=== PATIENT | female | born 1980 | race Asian ===

== ENCOUNTER 2018-07-14 22:32 | Emergency (ER) | payer BC, OTHER ==
[2018-07-15 00:08] LABS: ADD UMIC YES; UR ASCORBIC ACID 20 mg/dL (NEGATIVE); UR BILIRUBIN (Dip) NEGATIVE (NEGATIVE); UR BLOOD (Dip) 2+ mg/dL (NEGATIVE); UR CLARITY CLEAR (CLEAR); UR COLOR YELLOW (YELLOW); UR GLUCOSE (Dip) NEGATIVE (NEGATIVE); UR KETONES (Dip) NEGATIVE (NEGATIVE); UR LEUKOCYTE ESTERASE (Dip) NEGATIVE Leu/ul (NEGATIVE); UR MUCUS FEW /HPF (NONE SEEN); UR NITRITE (Dip) NEGATIVE (NEGATIVE); UR RBC 138 /HPF (0-5); UR TOTAL PROTEIN (Dip) NEGATIVE (NEGATIVE); UR UROBILINOGEN (Dip) NEGATIVE (NEGATIVE); UR WBC 1 /HPF (0-5)
[2018-07-15] MEDS: KETOROLAC 60 MG INJ IM (00:36)
[2018-07-15] MEDS: TAMSULOSIN (SR) 0.4 MG CAP PO (00:52)
[2018-07-15] MEDS: KETOROLAC 30 MG INJ IV (00:53)
== END 2018-07-15 02:21 | disposition home or self-care (01) ==
LOC: FTE 22:32
DX: H10.9 Unspecified conjunctivitis (principal); J06.9 Acute upper respiratory infection, unspecified; R10.9 Unspecified abdominal pain
CPT/HCPCS: 74176; 81001; 84703; 96374; 99285-25

== ENCOUNTER 2018-08-10 02:16 | Emergency (ER) | payer BC | END 2018-08-10 04:32 | disposition home or self-care (01) | LOC: FTE 02:16 | DX: J06.9 Acute upper respiratory infection, unspecified (principal) | CPT/HCPCS: 87880; 99283 ==

== ENCOUNTER → 2018-10-25 | Outpatient (CLI) | payer BC ==
[2018-10-25 15:42] LABS: ADD MAN DIFF? NO
[2018-10-25 15:43] LABS: BASOPHIL # 0.1 10^3/ul (0.0-0.1); BASOPHILS % 0.8 % (0.0-2.0); EOSINOPHILS # 0.2 10^3/ul (0.0-0.5); EOSINOPHILS % 2.6 % (0.0-7.0); HEMATOCRIT 35.9 % (37.0-47.0); HEMOGLOBIN 12.2 g/dl (12.0-16.0); LYMPHOCYTES # 1.1 10^3/ul (0.8-2.9); LYMPHOCYTES % 17.8 % (15.0-51.0); MEAN CORPUSCULAR HEMOGLOBIN 30.2 pg (29.0-33.0); MEAN CORPUSCULAR VOLUME 88.9 fl (82.0-101.0); MEAN PLATELET VOLUME 9.6 fl (7.4-10.4); MONOCYTE # 0.3 10^3/ul (0.3-0.9); MONOCYTES % 5.3 % (0.0-11.0); NEUTROPHIL # 4.6 10^3/ul (1.6-7.5); PLATELET COUNT 181 10^3/UL (140-415); RED BLOOD COUNT 4.04 10^6/ul (4.20-5.40); RED CELL DISTRIBUTION WIDTH 12.6 % (11.5-14.5)
[2018-10-25 15:43] LABS: WHITE BLOOD COUNT 6.2 10^3/ul (4.8-10.8)
[2018-10-25 15:48] LABS: ADD UMIC NO; UR ASCORBIC ACID 40 mg/dL (NEGATIVE); UR BILIRUBIN (Dip) NEGATIVE (NEGATIVE); UR BLOOD (Dip) NEGATIVE (NEGATIVE); UR CLARITY CLEAR (CLEAR); UR COLOR YELLOW (YELLOW); UR GLUCOSE (Dip) NEGATIVE (NEGATIVE); UR KETONES (Dip) NEGATIVE (NEGATIVE); UR LEUKOCYTE ESTERASE (Dip) NEGATIVE Leu/ul (NEGATIVE); UR NITRITE (Dip) NEGATIVE (NEGATIVE); UR TOTAL PROTEIN (Dip) NEGATIVE (NEGATIVE); UR UROBILINOGEN (Dip) NEGATIVE (NEGATIVE)
[2018-10-25 16:37] LABS: HEPATITIS B SURFACE ANTIGEN NEGATIVE (NEGATIVE)
[2018-10-25 16:54] LABS: HEPATITIS C VIRAL ANTIBODY NEGATIVE (NEGATIVE); HIV 1&2 ANTIBODY NEGATIVE (NEGATIVE)
[2018-10-25 22:18] LABS: RAPID PLASMA REAGIN NONREACTIVE (NR)
[2018-10-26 13:17] LABS: RUBELLA ANTIBODY - IGG 8.11 index; RUBELLA ANTIBODY - IGM <20.00 AU/mL
== END | disposition home or self-care (01) ==
LOC: LAB 15:07
DX: O28.9 Unspecified abnormal findings on antenatal screening of mother (principal); Z3A.00 Weeks of gestation of pregnancy not specified
CPT/HCPCS: 81003; 84443; 85025; 86592; 86703; 86762; 86803; 86850; 86900; 86901; 87086; 87340

== ENCOUNTER → 2018-12-10 | Outpatient (CLI) | payer BC ==
[2018-12-10 11:57] LABS: FREE T3 4.13 pg/ml (2.77-5.27); FREE T4 (FREE THYROXINE) 0.96 ng/dl (0.64-1.79)
== END | disposition home or self-care (01) ==
LOC: LAB 10:13
DX: R09.1 Pleurisy (principal)
CPT/HCPCS: 84439; 84481

== ENCOUNTER → 2019-02-23 | Outpatient (CLI) | payer BC ==
[2019-02-23 08:49] LABS: ADD MAN DIFF? NO
[2019-02-23 08:52] LABS: BASOPHILS % 0.4 % (0.0-2.0); EOSINOPHILS # 0.2 10^3/ul (0.0-0.5); HEMATOCRIT 34.7 % (37.0-47.0); HEMOGLOBIN 11.3 g/dl (12.0-16.0); LYMPHOCYTES # 1.2 10^3/ul (0.8-2.9); LYMPHOCYTES % 15.2 % (15.0-51.0); MEAN CORPUSCULAR HEMOGLOBIN 30.7 pg (29.0-33.0); MEAN CORPUSCULAR HGB CONC 32.6 g/dl (32.0-37.0); MEAN CORPUSCULAR VOLUME 94.3 fl (82.0-101.0); MEAN PLATELET VOLUME 9.9 fl (7.4-10.4); MONOCYTE # 0.4 10^3/ul (0.3-0.9); MONOCYTES % 4.9 % (0.0-11.0); NEUTROPHIL # 6.2 10^3/ul (1.6-7.5); NEUTROPHILS % 77.1 % (39.0-77.0); PLATELET COUNT 176 10^3/UL (140-415); RED BLOOD COUNT 3.68 10^6/ul (4.20-5.40); RED CELL DISTRIBUTION WIDTH 13.4 % (11.5-14.5)
[2019-02-23 09:57] LABS: THYROID STIMULATING HORMONE 0.784 MIU/L (0.465-4.680)
== END | disposition home or self-care (01) ==
LOC: LAB 07:05
DX: O24.419 Gestational diabetes mellitus in pregnancy, unspecified control (principal); Z3A.00 Weeks of gestation of pregnancy not specified
CPT/HCPCS: 82950; 84443; 85025

== ENCOUNTER → 2019-03-08 | Outpatient (CLI) | payer BC ==
[2019-03-08 10:00] LABS: GTT FASTING GLUCOSE 84 mg/dl (70-110)
[2019-03-08 10:33] LABS: GTT FASTING URINE NEGATIVE (NEGATIVE)
[2019-03-08 10:54] LABS: GLUCOSE 1 HOUR 144 mg/dl
== END | disposition home or self-care (01) ==
LOC: LAB 08:39
DX: O24.419 Gestational diabetes mellitus in pregnancy, unspecified control (principal); Z3A.00 Weeks of gestation of pregnancy not specified
CPT/HCPCS: 82951